=== PATIENT | female | born 1955 | race Caucasian/White ===

== ENCOUNTER → 2016-10-11 | Day surgery (SDC) | payer BC ==
[~2016-10-11] MED LIST: BUPIVACAINE/EPINEPHRINE 0.5% PF 10 ML VIAL ONE; LACTATED RINGER'S 1000 ML INJ 1,000 ML ONE; LIDOCAINE 1%/EPINEPHrine 1:100,000 SOLN 20 ML VIAL ONE; ONDANSETRON HCL 4 MG/2 ML VIAL IV PUSH ONE; PROPOFOL 200 MG/20 ML AMP IV ONE; ceFAZolin 2 GM PREMIX 50 ML ONE
--- NOTE | 2016-10-11 16:44 | TN ---
cc: GERTRUDE HANKINS DATE OF SURGERY: 10/11/2016. 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 OPERATIVE PROCEDURE PERFORMED: Needle localized excisional breast biopsy. ATTENDING SURGEON: Gertrude Hankins M.D. STEAMTABLE WORKER: Staff. ANESTHESIA: General with local anesthetic. FINDINGS: Clips found on the x-ray of the specimen. COMPLICATIONS: None. ESTIMATED BLOOD LOSS: 10 cc. INDICATIONS FOR THE PROCEDURE: The patient is a 61-year-old female who was found to have a BI-RADS 4 abnormality on her recent mammogram. The patient underwent an image-guided core biopsy of this lesion, which revealed unusual ductal hyperplasia and sclerosing adenosis and irregular scar. Due to these findings and the potential association with DCIS or invasive ductal carcinoma, I did offer the patient surgical biopsy. The risks, benefits, and alternatives to surgical breast biopsy were discussed with the patient in detail prior to the procedure, and the patient agreed to undergo the procedure. DESCRIPTION OF THE PROCEDURE IN DETAIL: This patient underwent needle localization of the clipped area in the right breast. The patient was taken to the operating room and placed in a supine position and placed under general anesthesia. The patient's right breast was prepped and draped in the usual sterile fashion. A time out was performed. Local anesthetic was instilled at the biopsy site which was the lateral nine o'clock portion of the breast. The wire stick site was extended into an approximately 2 cm incision. We used Bovie electrocautery as well as the Metzenbaums to dissect down to the area of the clip approximately 3 cm from the tip of the needle. We did carve out a cavity 360 degrees around this using Metzenbaum scissors as well as the Bovie electrocautery. As we were removing the specimen, the clip did become dislodged after we had removed the specimen from the breast. This was all sent down to radiology and the clip was found. Due to the clip being displaced, the radiologist did recommend additional tissue; therefore, at this time we did take four additional margins and these were sent for permanent processing. This was superior inferior medial and anterior margins, which grossly appeared to be normal breast tissue. At this point in time, we had excellent hemostasis. We irrigated out the cavity. We closed the underlying breast tissue with [id number] 3-0 Vicryl suture followed by the skin with 4-0 Monocryl and Dermabond. The patient was discontinued from anesthesia and taken to the post-anesthesia care unit in stable condition. The patient tolerated the procedure well. There were no apparent complications. All counts were correct. I was present and scrubbed for the entire procedure. MD LEONOR Rodriguez/JCDottie /4:25 PM /4:31 PM
== END | disposition home or self-care (01) ==
LOC: ESDC 11:56
PROVIDERS: ATTEND Surgery
DX: N60.91 Unspecified benign mammary dysplasia of right breast (principal)
CPT/HCPCS: 00400; 19125; 88307; J0690; J2405; J3010; J7120; 88341; 88342

== ENCOUNTER → 2016-12-28 | Outpatient (CLI) | payer BC ==
[2016-12-28 08:56] LABS: BLOOD GAS BASE EXCESS -0.7 mmol/L (-2-2); BLOOD GAS CARBOXYHEMOGLOBIN 1.1 % (0-4); BLOOD GAS HCO3 24 mmol/L (22-26); BLOOD GAS METHEMOGLOBIN 1.3 % (0-2); BLOOD GAS O2 HGB SATURATION 95 % (90-100); BLOOD GAS OXYGEN CONTENT 17.5 Vol % (12.0-20.0); BLOOD GAS PCO2 39 mmHg (38-42); BLOOD GAS PO2 96 mmHg (61-120); BLOOD GAS TOTAL HGB 13.1 G/DL (12.0-16.0); TEMP CORR TO 98.6
[2016-12-28 08:57] LABS: CRITICAL VALUE NO; DRAW SITE RT RADIAL; FIO2 21 %; NUMBER OF ARTERIAL PUNCTURES 1; STAT NO; ULNAR PULSE PRESENT
--- NOTE | 2017-01-02 12:34 | RSPPFT ---
DATE OF PROCEDURE: 12/28/16 COMMENTS: Spirometry with FVC of 3.0, FEV1 of 2.4 and FEV1/FVC ratio 80%. A non-significant response to acutely inhaled bronchodilator noted. Room air arterial blood gases shows pH of 7.39, PCO2 of 39 and PO2 of 96. Slow vital capacity is 92% of predicted. TLC is 95%. Diffusion capacity is normal. IMPRESSION: 1. No evidence of airways obstruction or restriction. 2. Normal diffusion capacity. 3. Adequate oxygenation and alveolar ventilation.
== END ==
LOC: HRSP 08:10
PROVIDERS: ATTEND Internal Medicine Sleep Medicine
DX: R06.09 Other forms of dyspnea (principal)
CPT/HCPCS: 36600; 82805; 94060; 94726; 94729